=== PATIENT | female | born 1945 | race American Indian/Alaskan Native ===

== ENCOUNTER 2017-10-26 01:56 | Emergency (ER) | payer MEDICARE ==
[2017-10-26 03:57] LABS: Basophils # (Auto) 0.1 K/mm3 (0.0-0.1); Basophils % (Auto) 1.5 % (0.0-1.8); Eosinophils # (Auto) 0.4 K/mm3 (0.0-0.4); Eosinophils % (Auto) 4.6 % (0.0-4.3); Hematocrit 28.2 % (30.3-42.9); Hemoglobin 8.9 gm/dl (10.1-14.3); Lymphocytes # (Auto) 3.3 K/mm3 (1.2-5.4); Mean Corpuscular HGB Conc 32 % (30-34); Mean Corpuscular Hemoglobin 19 pg (28-32); Mean Corpuscular Volume 61 fl (79-97); Monocytes % (Auto) 11.1 % (0.0-7.3); Platelet Count 601 K/mm3 (140-440); Red Blood Count 4.66 M/mm3 (3.65-5.03); Red Cell Distribution Width 19.9 % (13.2-15.2)
[2017-10-26 04:20] LABS: BUN/Creatinine Ratio 23; Blood Urea Nitrogen 16 mg/dL (7-17); Calcium 8.9 mg/dL (8.4-10.2); Hemolysis Index 6
--- NOTE | 2017-10-26 04:31 | XRay Report ---
FINAL REPORT PROCEDURE: XR CHEST ROUTINE 2V TECHNIQUE: PA and lateral chest radiographs were obtained. CPT 12638 HISTORY: pain COMPARISON: No prior studies are available for comparison. FINDINGS: Heart: Normal. Mediastinum/Vessels: Normal. Lungs/Pleural space: Normal. Bony thorax: No acute osseous abnormality. Other: IMPRESSION: Normal examination.
--- NOTE | 2017-10-26 04:32 | XRay Report ---
FINAL REPORT PROCEDURE: XR SHOULDER 2+V LT TECHNIQUE: LEFT shoulder radiographs including AP views in internal and external rotation and abduction. CPT 07544 HISTORY: pain COMPARISON: No prior studies are available for comparison. FINDINGS: Fracture (s) and/or Dislocation(s): None . Joint space(s): Mild narrowing of the joint spaces. Slight spur formation off of the osseous structures.. Soft tissues: Normal . Bone mineralization: Normal . Foreign bodies: None . IMPRESSION: No acute fracture dislocation. Mild arthritis.
[2017-10-26] MEDS ORDERED: NORCO 10/325 PO ONE (10:38)
[2017-10-26] MEDS ORDERED: ZOFRAN ODT PO ONE (10:38)
--- NOTE | 2017-10-26 10:44 | Emergency Department Report ---
Upper Extremity - HPI Chief Complaint: Extremity Injury, Upper Stated Complaint: LT ARM PAIN Time Seen by Provider: 10/26/17 10:18 Upper Extremity: Left Shoulder Occurred When: 3 Days Severity: moderate Symptoms: Yes Pain with Movement, Yes Limited Range of Movement, No Deformity, No Numbness, No Weakness, No Swelling, No Bruising/Ecchymosis, No Laceration or Abrasion Other History: Patient complains of left shoulder pain that started approximately 2-3 days ago. Patient uses a walker and states that she favors her left arm. Patient denies fall or any trauma. Patient denies chest pain, shortness of breath, headache. ED Review of Systems ROS: Stated complaint: LT ARM PAIN Other details as noted in HPI Constitutional: denies: chills, fever Eyes: denies: eye pain, eye discharge, vision change ENT: denies: ear pain, throat pain Respiratory: denies: cough, shortness of breath, wheezing Cardiovascular: denies: chest pain, palpitations Endocrine: no symptoms reported Gastrointestinal: denies: abdominal pain, nausea, diarrhea Genitourinary: denies: urgency, dysuria, discharge Musculoskeletal: other (pain of left shoulder). denies: back pain, joint swelling, arthralgia Skin: denies: rash, lesions Neurological: denies: headache, weakness, paresthesias Psychiatric: denies: anxiety, depression Hematological/Lymphatic: denies: easy bleeding, easy bruising ED Past Medical Hx - Past Medical History Previous Medical History?: Yes Hx Hypertension: Yes Hx Arthritis: Yes Hx Asthma: Yes - Surgical History Past Surgical History?: Yes Additional Surgical History: Had back, arm and knee surgery in 2006. - Social History Smoking Status: Never Smoker Substance Use Type: None - Medications Home Medications: Home Medications Medication Instructions Recorded Confirmed Last Taken Type Acetaminophen/Codeine [Tylenol 1 tab PO Q6H PRN #20 tab 10/26/17 Unknown Rx /Codeine # 3 tab] Ibuprofen [Motrin] 800 mg PO Q8HR PRN #30 tablet 10/26/17 Unknown Rx Upper Extremity Exam - Exam General: Vital signs noted. No distress. Alert and acting appropriately. Head and Torso: No HEENT Abnormality, No Neck Tenderness, No Chest/Lungs Abnormality, No Abdominal Tenderness, No Back Tenderness Shoulder Exam: Yes Shoulder Tenderness (left), Yes AC Joint Tenderness, No Clavicle Tenderness, No Normal Range of Motion in Shoulder (LROM of pain), No Shoulder Deformity Arm Exam: No Arm/Humerus Tenderness, No Arm Deformity Elbow: No Elbow Tenderness, No Normal Range of Motion in Elbow, No Elbow Deformity Forearm: No Forearm Tenderness, No Forearm Deformity, No Pain with Pronation, No Pain with Supination Wrist: Yes Normal ROM in Wrist, No Wrist Tenderness, No Wrist Deformity, No Snuffbox Tenderness, No Pain with Axial Thumb Compression Hand: Yes Normal ROM in Digit(s), No Hand Tenderness, No Hand Deformity, No Digit Tenderness, No Digit(s) Deformity, No Tendon Dysfunction CMS Exam: No Broken Skin, No Normal Distal Pulses, No Normal Capillary Refill, No Normal Distal Sensation ED Course Vital Signs 10/26/17 10/26/17 10/26/17 03:18 09:04 09:15 Temperature 99.2 F Pulse Rate 95 H 90 Respiratory 20 17 20 Rate Blood Pressure 104/57 126/68 O2 Sat by Pulse 97 92 96 Oximetry 10/26/17 10/26/17 09:30 09:43 Temperature Pulse Rate 85 Respiratory 12 16 Rate Blood Pressure 124/67 O2 Sat by Pulse 100 100 Oximetry ED Medical Decision Making - Lab Data Result diagrams: 10/26/17 03:36 10/26/17 03:36 - Medical Decision Making Discussed plan of care with patient imaging results. Patient was given pain medicine for her shoulder pain. Discussed the patient and she will go home with 2 prescriptions and follow with her primary care physician. Patient denies any chest pain shortness of breath or headache. Critical care attestation.: If time is entered above; I have spent that time in minutes in the direct care of this critically ill patient, excluding procedure time. ED Disposition Clinical Impression: Left shoulder strain Disposition: DC-01 TO HOME OR SELFCARE Is pt being admited?: No Does the pt Need Aspirin: No Condition: Stable Instructions: Shoulder Sprain (ED) Additional Instructions: Patient instructed to return to the emergency department if symptoms become worse. Prescriptions: Acetaminophen/Codeine [Tylenol /Codeine # 3 tab] 1 tab PO Q6H PRN #20 tab PRN Reason: Pain Ibuprofen [Motrin] 800 mg PO Q8HR PRN #30 tablet PRN Reason: Pain Referrals: SAUD DINH MD [Primary Care Provider] - 3-5 Days Forms: Accompanied Note Time of Disposition: 10:46 Print Language: KENYAN
[2017-10-26 11:40] VITALS: BP 134/75
== END 2017-10-26 11:41 | disposition home or self-care (01) ==
LOC: ED 01:56
DX: S46.812A Strain of other muscles, fascia and tendons at shoulder and upper arm level, left arm, initial encounter (principal); I10 Essential (primary) hypertension; M19.90 Unspecified osteoarthritis, unspecified site; J45.909 Unspecified asthma, uncomplicated; X50.3XXA Overexertion from repetitive movements, initial encounter; Y93.89 Activity, other specified; Y92.89 Other specified places as the place of occurrence of the external cause; Y99.8 Other external cause status
CPT/HCPCS: 36415; 71046; 80048; 85025; Q0162

== ENCOUNTER 2017-11-14 02:48 | Emergency (ER) | payer MEDICARE ==
[2017-11-14 05:16] LABS: Basophils % (Auto) 0.4 % (0.0-1.8); Eosinophils % (Auto) 0.2 % (0.0-4.3); Lymphocytes % (Auto) 17.2 % (13.4-35.0); Mean Corpuscular HGB Conc 30 % (30-34); Monocytes # (Auto) 1.3 K/mm3 (0.0-0.8); Monocytes % (Auto) 11.4 % (0.0-7.3); Platelet Count 602 K/mm3 (140-440); Red Blood Count 4.56 M/mm3 (3.65-5.03); Red Cell Distribution Width 18.7 % (13.2-15.2)
[2017-11-14 05:17] LABS: Hematocrit 27.7 % (30.3-42.9); Hemoglobin 8.2 gm/dl (10.1-14.3); Mean Corpuscular Hemoglobin 18 pg (28-32); Mean Corpuscular Volume 61 fl (79-97)
[2017-11-14 05:25] LABS: INR 1.24 (0.87-1.13)
[2017-11-14 05:26] LABS: Partial Thromboplastin Time 29.6 Sec. (24.2-36.6)
[2017-11-14 05:32] LABS: Alanine Aminotransferase 6 units/L (7-56); Albumin 3.3 g/dL (3.9-5); BUN/Creatinine Ratio 45; Blood Urea Nitrogen 18 mg/dL (7-17); Calcium 8.8 mg/dL (8.4-10.2); Hemolysis Index 2
[2017-11-14 05:44] LABS: Amphetamine Screen,Urine PRESUMPTIVE NEGATIVE; Benzodiazepines Screen,Urine PRESUMPTIVE NEGATIVE; Cannabinoid Screen,Urine PRESUMPTIVE NEGATIVE; Cocaine Screen,Urine PRESUMPTIVE NEGATIVE; Methadone Screen,Urine PRESUMPTIVE NEGATIVE
[2017-11-14 05:45] LABS: Bacteria,Urine 1+ /HPF (Negative); Bilirubin,Urine NEG (Negative); Blood,Urine MOD (Negative); Color,Urine Yellow (Yellow); Protein,Urine <15 mg/dL mg/dL (Negative); Urobilinogen,Urine < 2.0 mg/dL (<2.0)
[2017-11-14 05:57] LABS: Opiate Screen,Urine PRESUMPTIVE POSITIVE
--- NOTE | 2017-11-14 06:54 | Emergency Department Report ---
HPI - General Chief Complaint: Altered Mental Status Time Seen by Provider: 11/14/17 06:19 - HPI HPI: The patient is a 72-year-old female who presents for evaluation of mental health. The patient reports visual hallucinations consisting of seeing multiple people in her home last night. She states that she experienced constant and severe worrying/anxiety that began last night secondary to her visions of seeing people in her apartment. She says that this prompted her to call local law enforcement multiple times last night. She shares that law enforcement golf club head inspector and adjuster her apartment and submits to her that there were no other people in the apartment, which prompted her presentation to the ED. The patient denies fever, headache, unexplained weight loss or weight gain, heat or cold intolerance, skin, hair, or nail changes, neuro deficits, homicidal ideations, or auditory hallucinations. ED Past Medical Hx - Past Medical History Hx Hypertension: Yes Hx Arthritis: Yes Hx Asthma: Yes - Surgical History Additional Surgical History: Had back, arm and knee surgery in 2006. - Social History Smoking Status: Former Smoker Substance Use Type: Alcohol - Medications Home Medications: Home Medications Medication Instructions Recorded Confirmed Last Taken Type Acetaminophen/Codeine [Tylenol 1 tab PO Q6H PRN #20 tab 10/26/17 Unknown Rx /Codeine # 3 tab] Ibuprofen [Motrin] 800 mg PO Q8HR PRN #30 tablet 10/26/17 Unknown Rx ED Review of Systems ROS: Stated complaint: AMS Other details as noted in HPI Constitutional: denies: fever ENT: denies: throat or neck pain Respiratory: denies: cough, shortness of breath Cardiovascular: denies: chest pain Endocrine: denies unexplained weight loss or gain Gastrointestinal: denies: abdominal pain, nausea Genitourinary: denies: dysuria Musculoskeletal: denies: leg swelling Skin: denies: rash Neurological: denies: headache Hematological/Lymphatic: denies: easy bleeding or easy bruising Psych: reports anxiety and visual hallucinations denies sadness or hopelessness Physical Exam - Physical Exam Vital Signs: Vital Signs 11/14/17 04:26 Temperature 98 F Pulse Rate 98 H Blood Pressure 132/88 O2 Sat by Pulse 100 Oximetry Physical Exam: General: well-nourished, well-developed, no acute distress Head: Normocephalic, atraumatic Eyes: normal sclera ENT: Mucous membranes are pale and dry Neck: No neck stiffness, no cervical adenopathy Respiratory: Breath sounds equal bilaterally, no wheezing, rales, or rhonchi Cardio: S1 and S2 present, no murmurs, rubs, gallops, capillary refill is delayed Abdomen: Normoactive bowel sounds, soft abdomen, no rigidity, no guarding or rebound tenderness Musc: No pitting edema Skin: No rash Neuro: no facial drooping, normal speech, alert oriented 2, no obvious gross sensation motor deficits on neuro exam Psych: Flat affect, poor insight, patient delusional, depressed mood ED Course Vital Signs 11/14/17 04:26 Temperature 98 F Pulse Rate 98 H Blood Pressure 132/88 O2 Sat by Pulse 100 Oximetry ED Medical Decision Making - Lab Data Result diagrams: 11/14/17 04:57 11/14/17 04:57 - Medical Decision Making The patient was seen and examined by myself. The patient is placed on a cardiac rehab nurse and continuous pulse ox. On initial evaluation, the patient was found to be in no distress. Labs are obtained. Lab results exhibit positive opiate screen on UDS, and moderate anemia, hemoglobin 8, otherwise labs are grossly unremarkable. The patient is medically clear. The patient was reevaluated and she remains delusional reporting visual hallucinations. She is now stating that there was an unknown woman with a poodle was in her home. She states that when local law enforcement presented to her home and searched her home for an intruder the woman left. She submits that when the police exited, the woman returned to her apartment with the poodle despite her apartment door being locked. Mental health is consulted. Mental health evaluates the patient and agrees that the patient is exhibiting signs consistent with acute psychosis. A 1013 is placed. The patient will be admitted to a psychiatric facility once bed placement is obtained. Critical care attestation.: If time is entered above; I have spent that time in minutes in the direct care of this critically ill patient, excluding procedure time. ED Disposition Clinical Impression: Acute psychosis, Visual hallucinations, Dehydration Disposition: DC/TX-65 PSY HOSP/PSY UNIT Is pt being admited?: No Does the pt Need Aspirin: No Condition: Fair Referrals: SAUD DINH MD [Primary Care Provider] - 3-5 Days Time of Disposition: 06:54
--- NOTE | 2017-11-14 08:06 | Cat Scan Report ---
CT HEAD WITHOUT CONTRAST: HISTORY: Headache. TECHNIQUE: Sequential 2.5mm CT images. COMPARISON: none. FINDINGS: Cerebral Parenchyma: Within normal limits. Cerebellum: Within normal limits. Brainstem: Within normal limits. Ventricles: Normal. Sella: Normal. Extra-axial spaces: Normal. Basal Cisterns: Normal. Intracranial Hemorrhage: None. Midline Shift: None. Calvarium: Normal. Sinuses: Normal. Mastoid Air Cells: Normal. Visualized Orbits: Normal. IMPRESSION: Cranial CT scan within normal limits.
[2017-11-14] MEDS ORDERED: K-DUR PO ONE (09:02)
[2017-11-14] MEDS ORDERED: MILK OF MAGNESIA PO PRN (09:02)
[2017-11-14] MEDS ORDERED: ALUM-MAG HYDROX-SIMETH 200-200-20MG/5ML PO PRN (09:02)
[2017-11-14] MEDS ORDERED: MOTRIN PO ONE (17:44)
[2017-11-15] MEDS: TYLENOL PO PRN ×2 (05:52→18:33)
--- NOTE | 2017-11-15 14:54 | Consultation ---
History of Present Illness - Reason for Consult Consult date: 11/15/17 Reason for consult: Mental Health Evaluation Requesting physician: DEVON SUMNER - Chief Complaint Chief complaint: "There were people in my house" - History of Present Psychiatric Illness The patient is a 72-year-old female who presents for evaluation of mental health. Today the patient is calm and cooperative, but delusional during the assessment. She stated that she called the police prior to her admission to the hospital because their was strangers in her home along with a dog. She stated that the dog was sitting near her. Per the record, the police confirmed that there wasn't anyone in the patient's home and she was brought to the hospital for evaluation. She is adamant that "people and a dog" was in her home. Per collateral information from her daughter Mirella Cousins at [phone], she stated that her mother has experienced falls recently. She stated that the patient does not have a mental hx dx, but her recent actions isn't her mother ( baseline). She stated that her mother is taking Tylenol 3 for pain, but isn't aware of her mothers's entire medication list. The patient denies SI/HI's and AVH's. She would not confirm or deny erratic sleep and a poor appetite. The patient denies recreational drug use and alcohol consumption (etoh). Medications and Allergies Allergies Allergy/AdvReac Type Severity Reaction Status Date / Time No Known Allergies Allergy Unverified 10/26/17 03:29 Home Medications Medication Instructions Recorded Confirmed Last Taken Type Acetaminophen/Codeine [Tylenol 1 tab PO Q6H PRN #20 tab 10/26/17 11/15/17 Unknown Rx /Codeine # 3 tab] Ibuprofen [Motrin] 800 mg PO Q8HR PRN #30 tablet 10/26/17 11/15/17 Unknown Rx Active Meds: Active Medications Acetaminophen (Tylenol) 650 mg PO Q4HR PRN PRN Reason: Pain MILD(1-3)/Fever >100.5/QUINONEZ Last Admin: 11/15/17 05:52 Dose: 650 mg Acetaminophen/Codeine Phosphate (Tylenol #3) 1 tab PO Q8HR PRN PRN Reason: Pain Al Hydrox/Mg Hydrox/Simethicone (Alum-Mag Hydrox-Simeth [id number]/5ml) 30 ml PO Q4HR PRN PRN Reason: Indigestion Magnesium Hydroxide (Milk Of Magnesia) 30 ml PO Q12HR PRN PRN Reason: Constipation Past psychiatric history - Past Medical History Past Medical History: hypertension, other (Asthma) Past Surgical History: No surgical history - past Psychiatric treatment and history psychiatric treatment history: Denies a psy hx and fam psy hx. - Social History Social history: Lives alone Mental Status Exam - Vital signs Last Vital Signs Temp 99 F 11/15/17 10:00 Pulse 100 H 11/15/17 10:00 Resp 18 11/15/17 11:00 BP 106/52 11/15/17 10:00 Pulse Ox 99 11/15/17 10:00 - Exam Narrative exam: MSE: Appearance: calm, cooperative Behavior: regular eye contact Speech: regular rate and tone Mood: "okay" Affect: congruent to mood Thought Process: tangential Thought Content: denies SI/HI's and AVH's, delusional Motor Activity: lying in bed Cognition: A/O x3 Insight: poor Judgment: poor Results Result Diagrams: 11/14/17 04:57 11/14/17 04:57 All other labs normal. Assessment and Plan Assessment and plan: Impression: Unspecified Psychosis. Today the patient is calm and cooperative, but delusional during the assessment. The patient has been experiencing falls per her daughter Mirella Cousins. No agitation observed during the assessment. DDx: R/O Delusional DO, R/O Delirium, R/O Polypharmacy Recommendation/Plan: Continue 1013. Informed the patient's daughter to bring the entire medication list of the patient to the ER. Continue Tylenol 3 prn, don 't want to risk opioid withdrawals. Will reassess the patient in 24 hours to determine proper treatment and dispo.
[2017-11-16] MEDS: TYLENOL #3 PO PRN ×2 (03:11→09:53)
[2017-11-16] MEDS ORDERED: MOTRIN ONE (13:46)
[2017-11-16] MEDS ORDERED: MOTRIN PO ONE (13:51)
--- NOTE | 2017-11-16 17:27 | Progress Note ---
Subjective - Reason for Consult Consult date: 11/16/17 Reason for consult: follow up - Chief Complaint Chief complaint: "I want to go home." The patient is a 72-year-old female who presents for evaluation of mental health. Today the patient is calm and cooperative and able to recount the events leading to her ER visit. She stated that she called the police prior to her admission to the hospital because their was strangers in her home along with a dog. She states this was the first time in her life she experienced hallucinations. She states it seemed so real. Per the record, the police confirmed that there wasn't anyone in the patient's home and she was brought to the hospital for evaluation. She is adamant that "people and a dog" was in her home. Per collateral information from her daughter Mirella Cousins at [phone], she stated that her mother has experienced falls recently. She stated that the patient does not have a mental hx dx, but her recent actions isn't her mother (baseline). She stated that her mother is taking Tylenol 3 for pain, but isn't aware of her mothers's entire medication list. Medicines have not been reconciled. The patient denies SI/HI's and AVH's. She states she normally sleeps well, 8 hours per night. She also reports her appetite is fair. She wants to go home. She states she is more pain in the hospital due to severe arthritis. The patient denies recreational drug use and alcohol consumption (etoh). She is alert and oriented to person, place, and time. Mental Status Exam - Vital signs Last Vital Signs Temp 98.7 F 11/16/17 11:30 Pulse 81 11/16/17 11:30 Resp 18 11/16/17 11:30 BP 133/59 11/16/17 11:30 Pulse Ox 98 11/16/17 11:30 - Exam Narrative exam: MSE: Appearance: calm, cooperative Behavior: regular eye contact Speech: regular rate and tone Mood: "okay" Affect: congruent to mood Thought Process: logical Thought Content: denies SI/HI's and AVH Motor Activity: lying in bed Cognition: A/O x3 Insight: fair Judgment: fair Assessment and Plan Impression: Unspecified Psychosis. Today the patient is calm and cooperative and is able to recount the events leading to her ER visit. The patient has been experiencing falls per her daughter Mirella Cousins. No agitation observed during the assessment. Consider the visual hallucinations and subsequent paranoia as part of a cognitive or organic disorder. Symptoms appear to have resolved but ongoing monitoring over the next 24-48 hours is recommended. DDx: R/O Delusional DO, R/O Delirium, R/O Polypharmacy Recommendation/Plan: Continue 1013. Her medications need to be reconciled immediately by the nursing staff. Continue Tylenol 3 prn to reduce the risk for potential opioid withdrawal.
[2017-11-17] MEDS: TYLENOL #3 PO PRN (07:54)
--- NOTE | 2017-11-18 10:40 | Progress Note ---
Subjective - Reason for Consult Consult date: 11/18/17 Reason for consult: Psychiatry Follow-up - Chief Complaint Chief complaint: "I feel okay" The patient is a 72-year-old female who presents for evaluation of mental health. Today the patient is calm and cooperative and able to recount the events leading to her ER visit. She stated that she does not believe people was in her house now when asked. She stated that she don't know why she felt like that prior to her admission to the hospital. Per the staff, no behavioral disturbances since her admission. She denies SI/HI's and AVH's. Mental Status Exam - Vital signs Last Vital Signs Temp 98.7 F 11/18/17 07:50 Pulse 95 H 11/18/17 07:50 Resp 16 11/18/17 07:50 BP 142/67 11/18/17 07:50 Pulse Ox 99 11/18/17 07:50 - Exam Narrative exam: MSE: Appearance: calm, cooperative Behavior: regular eye contact Speech: regular rate and tone Mood: "okay" Affect: congruent to mood Thought Process: logical Thought Content: denies SI/HI's and AVH's Motor Activity: lying in bed Cognition: A/O x3 Insight: fair Judgment: fair Assessment and Plan Impression: Unspecified Psychosis. Today the patient is calm and cooperative and is able to recount the events leading to her ER visit. The patient has been experiencing falls per her daughter Mirella Cousins. No agitation observed during the assessment. Consider the visual hallucinations and subsequent paranoia as part of a cognitive or organic disorder. DDx: R/O Delusional DO, R/O Delirium, R/O Polypharmacy Recommendation/Plan: Rescind 1013. Discussed with the patient's daughter Mirella Cousins to have her mom follow up with her PCP to reconcile her medication list. Continue Tylenol 3 prn to reduce the risk for potential opioid withdrawal.
[2017-11-18] MEDS: TYLENOL #3 PO PRN (12:54)
[2017-11-18 19:51] VITALS: BP 139/88
== END 2017-11-18 19:53 | disposition home or self-care (01) ==
LOC: ED 02:48
DX: F23 Brief psychotic disorder (principal); E86.0 Dehydration; I10 Essential (primary) hypertension; M19.90 Unspecified osteoarthritis, unspecified site; J45.909 Unspecified asthma, uncomplicated; Z87.891 Personal history of nicotine dependence; Z79.899 Other long term (current) drug therapy
CPT/HCPCS: 36415; 70450; 80053; 80307; 81001; 84484; 85025; 85610; 85730; 99285; G0480; 80320

== ENCOUNTER 2018-02-21 13:48 | Observation (INO) | payer MEDICARE ==
[2018-02-21] MEDS ORDERED: ASPIRIN PO ONE (15:23)
[2018-02-21 16:19] LABS: Basophils % (Auto) 0.6 % (0.0-1.8); Eosinophils # (Auto) 0.2 K/mm3 (0.0-0.4); Eosinophils % (Auto) 2.4 % (0.0-4.3); Lymphocytes # (Auto) 2.7 K/mm3 (1.2-5.4); Lymphocytes % (Auto) 39.2 % (13.4-35.0); Mean Corpuscular HGB Conc 30 % (30-34); Monocytes # (Auto) 0.7 K/mm3 (0.0-0.8); Monocytes % (Auto) 10.8 % (0.0-7.3); Platelet Count 669 K/mm3 (140-440); Red Blood Count 5.17 M/mm3 (3.65-5.03); Red Cell Distribution Width 19.1 % (13.2-15.2)
[2018-02-21 16:22] LABS: Hematocrit 31.9 % (30.3-42.9); Hemoglobin 9.6 gm/dl (10.1-14.3); Mean Corpuscular Hemoglobin 19 pg (28-32); Mean Corpuscular Volume 62 fl (79-97)
[2018-02-21 16:28] LABS: BUN/Creatinine Ratio 20; Blood Urea Nitrogen 12 mg/dL (7-17); Calcium 9.1 mg/dL (8.4-10.2); Hemolysis Index 22
[2018-02-21] MEDS ORDERED: NACL 0.9% 500 ML 500 ML IV ONE (16:54)
--- NOTE | 2018-02-21 17:32 | Emergency Department Report ---
Chief Complaint: Chest Pain Stated Complaint: RIGHT SIDE CHEST PAIN Time Seen by Provider: 02/21/18 16:48 - HPI History of Present Illness: Ms. Ponce has right sided chest pain worse with movement. Tachycardia with hypotension. IVF initiated. CT PE protocol ordered - Exam Vital Signs: Vital Signs 02/21/18 15:14 Temperature 98.5 F Pulse Rate 111 H Respiratory 20 Rate Blood Pressure 91/54 O2 Sat by Pulse 97 Oximetry MSE screening note: Focused history and physical exam performed. Due to findings the following was ordered: ED Medical Decision Making - Lab Data Result diagrams: 02/21/18 15:52 02/21/18 15:52 ED Disposition for MSE Condition: Stable Referrals: PRIMARY CARE, [Primary Care Provider] - 3-5 Days
--- NOTE | 2018-02-21 17:57 | Emergency Department Report ---
ED Chest Pain HPI - General Chief Complaint: Chest Pain Stated Complaint: RIGHT SIDE CHEST PAIN Time Seen by Provider: 02/21/18 16:35 Source: patient Mode of arrival: Stretcher Limitations: Physical Limitation - History of Present Illness Initial Comments: Patient is a 72-year-old female that presents to emergency room with complaints of right-sided chest pain 1 day patient states the pain is worse with movement and better with rest. Patient states the pain is nonradiating. Patient denies diaphoresis and nausea and vomiting. Patient denies abdominal pain. Patient states the chest pain as a 10 out of 10. She describes the pain as a sharp pain. Patient denies shortness of breath MD Complaint: chest pain -: Sudden Pain Location: right chest Pain Radiation: none Severity: severe Severity scale (0 -10): 10 Quality: sharp Consistency: constant Improves With: rest Worsens With: exertion, inspiration, movement re: denies: nausea, vomting, diaphoresis, dyspnea, sense of impending doom Other Symptoms: denies: cough, fever, syncope, rash, acid taste in mouth, leg swelling, palpitations, burping Treatments Prior to Arrival: none Aspirin use within the Past 7 Days: (1) Yes - Related Data On Oral Contraceptives: No Previous Rx's Medication Instructions Recorded Last Taken Type Acetaminophen/Codeine [Tylenol 1 tab PO Q6H PRN #20 tab 10/26/17 Unknown Rx /Codeine # 3 tab] Ibuprofen [Motrin 800 MG tab] 800 mg PO Q8HR PRN #20 tablet 11/18/17 Unknown Rx Allergies Allergy/AdvReac Type Severity Reaction Status Date / Time No Known Allergies Allergy Unverified 10/26/17 03:29 Heart Score - HEART Score History: Slightly suspicious EKG: Normal Age: > 65 Risk factors: 1-2 risk factors Troponin: < normal limit HEART Score: 3 ED Review of Systems ROS: Stated complaint: RIGHT SIDE CHEST PAIN Other details as noted in HPI Constitutional: denies: chills, fever Eyes: denies: eye pain, eye discharge, vision change ENT: denies: ear pain, throat pain Respiratory: denies: cough, shortness of breath, wheezing Cardiovascular: chest pain. denies: palpitations Endocrine: no symptoms reported Gastrointestinal: denies: abdominal pain, nausea, diarrhea Genitourinary: denies: urgency, dysuria, discharge Musculoskeletal: denies: back pain, joint swelling, arthralgia Skin: denies: rash, lesions Neurological: denies: headache, weakness, paresthesias Psychiatric: denies: anxiety, depression Hematological/Lymphatic: denies: easy bleeding, easy bruising ED Past Medical Hx - Past Medical History Previous Medical History?: Yes Hx Hypertension: Yes Hx Arthritis: Yes Hx Asthma: Yes - Surgical History Past Surgical History?: Yes Additional Surgical History: Had back, arm and knee surgery in 2006. - Family History Family history: hypertension - Social History Smoking Status: Never Smoker Substance Use Type: None - Medications Home Medications: Home Medications Medication Instructions Recorded Confirmed Last Taken Type Acetaminophen/Codeine [Tylenol 1 tab PO Q6H PRN #20 tab 10/26/17 11/15/17 Unknown Rx /Codeine # 3 tab] Ibuprofen [Motrin 800 MG tab] 800 mg PO Q8HR PRN #20 tablet 11/18/17 Unknown Rx ED Physical Exam - General Limitations: Physical Limitation General appearance: alert, in no apparent distress - Head Head exam: Present: atraumatic, normocephalic - Eye Eye exam: Present: normal appearance - ENT ENT exam: Present: mucous membranes moist - Neck Neck exam: Present: normal inspection - Respiratory Respiratory exam: Present: normal lung sounds bilaterally. Absent: respiratory distress - Cardiovascular Cardiovascular Exam: Present: regular rate, normal rhythm. Absent: systolic murmur, diastolic murmur, rubs, gallop - GI/Abdominal GI/Abdominal exam: Present: soft, normal bowel sounds - Extremities Exam Extremities exam: Present: normal inspection - Back Exam Back exam: Present: normal inspection - Neurological Exam Neurological exam: Present: alert, oriented X3 - Psychiatric Psychiatric exam: Present: normal affect, normal mood - Skin Skin exam: Present: warm, dry, intact, normal color. Absent: rash ED Course Vital Signs 02/21/18 02/21/18 02/21/18 15:14 16:00 19:47 Temperature 98.5 F 98.1 F Pulse Rate 111 H 74 89 Respiratory 20 18 16 Rate Blood Pressure 91/54 Blood Pressure 123/60 131/72 [Left] O2 Sat by Pulse 97 100 98 Oximetry - Reevaluation(s) Reevaluation #1: Patient did not tolerate IV dye for CTA through her peripheral IV through her right antecubital peripheral IV. Patient complaining of a lot of pain with the dye going in. Patient had multiple sticks on her arms. We'll place a right EJ for her CTA. Patient is agreeable to the procedure. Procedure done see procedure note 02/21/18 19:00 Reevaluation #2: Hospitalist consulted for admission. Hospitalist to assume care of patient. dr nieves took report. Discussed plan of care with patient. Patient agreed to admission. Hospitalist to admit patient for further evaluation and treatment 02/21/18 19:53 - EJ/Peripheral Line Neck R Time Out Performed: Yes Indications: nurses unable to establis, multiple IV sites needed Skin Cleansed in Sterile Fashion: Yes Size: 20 Dressing Placed: Tegaderm, tape Patient Tolerated Procedure: well LINDSEY score - Lindsey Score Age > 65: (1) Yes Aspirin use within the Past 7 Days: (1) Yes 3 or more CAD Risk Factors: (0) No 2 or more Angina events in past 24 hrs: (0) No Known CAD with more than 50% Stenosis: (0) No Elevated Cardiac Markers: (0) No ST Deviation Greater than 0.5mm: (0) No LINDSEY Score: 2 ED Medical Decision Making - Lab Data Result diagrams: 02/21/18 15:52 02/21/18 15:52 - EKG Data -: EKG Interpreted by Me EKG shows normal: sinus rhythm, axis, intervals, QRS complexes, ST-T waves Rate: tachycardia - Medical Decision Making Patient is a 72-year-old female that presents to emergency room with hypotension and chest pain. Blood pressure has improved with treatment. Will admit patient to the hospitalist service for further evaluation and treatment. - Differential Diagnosis cp. acs. Hypotension Critical Care Time: Yes Critical care attestation.: If time is entered above; I have spent that time in minutes in the direct care of this critically ill patient, excluding procedure time. Critical Care Time: 35 minutes for critical care time. ED Disposition Clinical Impression: Hypotension, Chest pain, Shortness of breath Disposition: OP ADMIT IP TO THIS HOSP Is pt being admited?: Yes Does the pt Need Aspirin: No Condition: Critical Time of Disposition: 19:55
--- NOTE | 2018-02-21 20:00 | Cat Scan Report ---
FINAL REPORT PROCEDURE: CT angiogram chest with contrast. TECHNIQUE: Computerized tomographic angiography of the chest was performed after the IV injection of iodinated nonionic contrast including image processing. The image data was postprocessed using 2-dimensional multiplanar reformatted (MPR) and 3-dimensional (MIP and/or volume rendered) techniques. HISTORY: Right-sided chest pain, tachycardia. COMPARISON: No prior studies are available for comparison. FINDINGS: The trachea and central bronchi appear normal. There are some small cysts in both upper lobes. This may represent early emphysema. There is some minimal streaky opacity in the right lower lobe. This probably represents some fibrosis. There is some mild fibrosis in the posterior portion of the left upper lobe and probably in the left lower lobe. There are no definite signs of pneumonia. There are no definite pulmonary nodules. There are no pleural effusions. The thoracic aorta has a normal caliber without evidence of dissection. There is a small nodule in the left lobe of the thyroid. The pulmonary arteries enhance normally. There are no definite filling defects to indicate pulmonary embolism. There are a few small nonspecific mediastinal lymph nodes. The heart size is mildly enlarged. The adrenal glands appear normal. The regional skeleton appears intact. 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 IMPRESSION: No evidence of pulmonary embolism. Question early emphysema with scattered areas of fibrosis. Mild cardiomegaly.
[2018-02-22] MEDS ORDERED: NACL 0.9% 1000 ML 1,000 ML IV SCH
[2018-02-22] MEDS ORDERED: ZOFRAN IV PRN
[2018-02-22] MEDS ORDERED: TYLENOL PO PRN
[2018-02-22] MEDS ORDERED: SODIUM CHLORIDE FLUSH SYRINGE 10 ML IV PRN
[2018-02-22] MEDS ORDERED: PERCOCET 5/325 PO PRN
[2018-02-22] MEDS ORDERED: MORPHINE IV PRN
[2018-02-22] MEDS ORDERED: AMBIEN PO PRN
--- NOTE | 2018-02-22 | History and Physical Report ---
History of Present Illness Date of examination: 02/21/18 Date of admission: 02/21/2018 Chief complaint: Chief complaint: Chest pain of one-day duration History of present illness: History of Present Illness: Patient is a 72-year-old female that presents to emergency room with complaints of right-sided chest pain 1 day patient states the pain is worse with movement and better with rest. Patient states the pain is nonradiating. Patient denies diaphoresis and nausea and vomiting. Patient denies abdominal pain. Patient states the chest pain as a 10 out of 10. She describes the pain as a sharp pain. Patient denies shortness of breath MD Complaint: chest pain -: Sudden Pain Location: right chest Pain Radiation: none Severity: severe Severity scale (0 -10): 10 Quality: sharp Consistency: constant Improves With: rest Worsens With: exertion, inspiration, movement , denies: nausea, vomting, diaphoresis, dyspnea, sense of impending doom Other Symptoms: denies: cough, fever, syncope, rash, acid taste in mouth, leg swelling, palpitations, burping Treatments Prior to Arrival: none Aspirin use within the Past 7 Days: (1) Yes Past Medical History Previous Medical History?: Yes Hx Hypertension: Yes Hx Arthritis: Yes Hx Asthma: Yes Surgical History Past Surgical History?: Yes Additional Surgical History: Had back, arm and knee surgery in 2006. Family History Family history: hypertension Social History Smoking Status: Never Smoker Substance Use Type: None Medications Home Medications: Home Medications Medication Instructions Recorded Confirmed Last Taken Type Acetaminophen/Codeine [Tylenol 1 tab PO Q6H PRN #20 tab 10/26/17 11/15/17 Unknown Rx /Codeine # 3 tab] Ibuprofen [Motrin 800 MG tab] 800 mg PO Q8HR PRN #20 tablet 11/18/17 Unknown Rx Review of Systems ROS: Stated complaint: RIGHT SIDE CHEST PAIN Other details as noted in HPI Constitutional: denies: chills, fever Eyes: denies: eye pain, eye discharge, vision change ENT: denies: ear pain, throat pain Respiratory: denies: cough, shortness of breath, wheezing Cardiovascular: chest pain. denies: palpitations Endocrine: no symptoms reported Gastrointestinal: denies: abdominal pain, nausea, diarrhea Genitourinary: denies: urgency, dysuria, discharge Musculoskeletal: denies: back pain, joint swelling, arthralgia Skin: denies: rash, lesions Neurological: denies: headache, weakness, paresthesias Psychiatric: denies: anxiety, depression Hematological/Lymphatic: denies: easy bleeding, easy bruising Medications and Allergies Allergies Allergy/AdvReac Type Severity Reaction Status Date / Time No Known Allergies Allergy Unverified 10/26/17 03:29 Home Medications Medication Instructions Recorded Confirmed Last Taken Type Acetaminophen/Codeine [Tylenol 1 tab PO Q6H PRN #20 tab 10/26/17 11/15/17 Unknown Rx /Codeine # 3 tab] Ibuprofen [Motrin 800 MG tab] 800 mg PO Q8HR PRN #20 tablet 11/18/17 Unknown Rx Exam - Constitutional Vitals: Temp Pulse Resp BP Pulse Ox 98.1 F 91 H 13 116/58 97 02/21/18 19:47 02/21/18 23:30 02/21/18 23:30 02/21/18 23:30 02/21/18 23:30 General appearance: Present: no acute distress, well-nourished - EENT Eyes: Present: PERRL ENT: hearing intact, clear oral mucosa - Neck Neck: Present: supple, normal ROM - Respiratory Respiratory effort: normal Respiratory: bilateral: CTA - Cardiovascular Heart rate: 70 Rhythm: regular Heart Sounds: Present: S1 & S2. Absent: rub, click - Extremities Extremities: no ischemia, pulses intact, pulses symmetrical, No edema Peripheral Pulses: within normal limits - Abdominal General gastrointestinal: Present: soft, non-tender, non-distended, normal bowel sounds Female genitourinary: Present: normal - Integumentary Integumentary: Present: clear, warm, dry - Musculoskeletal Musculoskeletal: gait normal, strength equal bilaterally - Psychiatric Psychiatric: appropriate mood/affect, intact judgment & insight - Neurologic Neurologic: CNII-XII intact, moves all extremities - Allied Health Allied health notes reviewed: nursing, case management Results - Labs CBC & Chem 7: 02/22/18 03:03 02/22/18 03:03 Labs: Laboratory Last Values WBC 6.9 K/mm3 (4.5-11.0) 02/21/18 15:52 RBC 5.17 M/mm3 (3.65-5.03) H 02/21/18 15:52 Hgb 9.6 gm/dl (10.1-14.3) L 02/21/18 15:52 Hct 31.9 % (30.3-42.9) 02/21/18 15:52 MCV 62 fl (79-97) L 02/21/18 15:52 MCH 19 pg (28-32) L 02/21/18 15:52 MCHC 30 % (30-34) 02/21/18 15:52 RDW 19.1 % (13.2-15.2) H 02/21/18 15:52 Plt Count 669 K/mm3 (140-440) H 02/21/18 15:52 Lymph % (Auto) 39.2 % (13.4-35.0) H 02/21/18 15:52 [place] % (Auto) 10.8 % (0.0-7.3) H 02/21/18 15:52 Eos % (Auto) 2.4 % (0.0-4.3) 02/21/18 15:52 Baso % (Auto) 0.6 % (0.0-1.8) 02/21/18 15:52 Lymph # 2.7 K/mm3 (1.2-5.4) 02/21/18 15:52 [place] # 0.7 K/mm3 (0.0-0.8) 02/21/18 15:52 Eos # 0.2 K/mm3 (0.0-0.4) 02/21/18 15:52 Baso # 0.0 K/mm3 (0.0-0.1) 02/21/18 15:52 Seg Neutrophils % 47.0 % (40.0-70.0) 02/21/18 15:52 Seg Neutrophils # 3.2 K/mm3 (1.8-7.7) 02/21/18 15:52 D-Dimer 4219.64 ng/mlDDU (0-234) H 02/21/18 17:36 Sodium 138 mmol/L (137-145) 02/21/18 15:52 Potassium 4.0 mmol/L (3.6-5.0) 02/21/18 15:52 Chloride 100.2 mmol/L (98-107) 02/21/18 15:52 Carbon Dioxide 23 mmol/L (22-30) 02/21/18 15:52 Anion Gap 19 mmol/L 02/21/18 15:52 BUN 12 mg/dL (7-17) 02/21/18 15:52 Creatinine 0.6 mg/dL (0.7-1.2) L 02/21/18 15:52 Estimated GFR > 60 ml/min 02/21/18 15:52 BUN/Creatinine Ratio 20 % 02/21/18 15:52 Glucose 90 mg/dL (65-100) 02/21/18 15:52 Lactic Acid 0.60 mmol/L (0.7-2.0) L 02/21/18 17:36 Calcium 9.1 mg/dL (8.4-10.2) 02/21/18 15:52 Troponin T < 0.010 ng/mL (0.00-0.029) 02/21/18 21:00 Short CBC 02/21/18 02/22/18 Range/Units 15:52 03:03 WBC 6.9 6.6 (4.5-11.0) K/mm3 Hgb 9.6 L 8.5 L (10.1-14.3) gm/dl Hct 31.9 27.4 L (30.3-42.9) % Plt Count 669 H 622 H (140-440) K/mm3 BMP 02/21/18 02/22/18 15:52 03:03 Sodium 138 138 Potassium 4.0 4.1 Chloride 100.2 100.9 Carbon Dioxide 23 25 BUN 12 10 Creatinine 0.6 L 0.5 L Glucose 90 142 H Calcium 9.1 8.6 Cardiac Enzymes 02/21/18 02/21/18 02/21/18 Range/Units 15:52 17:36 21:00 Troponin T < 0.010 < 0.010 < 0.010 (0.00-0.029) ng/mL Liver Function 02/22/18 Range/Units 03:03 Total Bilirubin < 0.20 (0.1-1.2) mg/dL AST 15 (5-40) units/L ALT 7 (7-56) units/L Alkaline Phosphatase 86 (35-129) units/L Albumin 2.8 L (3.9-5) g/dL - Imaging and Cardiology EKG: report reviewed (no acute ST-T wave changes heart rate of 102 left atrial enlargement or anteroseptal infarct) Imaging and Cardiology: CT angiogram FINDINGS: The trachea and central bronchi appear normal. There are some small cysts in both upper lobes. This may represent early emphysema. There is some minimal streaky opacity in the right lower lobe. This probably represents some fibrosis. There is some mild fibrosis in the posterior portion of the left upper lobe and probably in the left lower lobe. There are no definite signs of pneumonia. There are no definite pulmonary nodules. There are no pleural effusions. The thoracic aorta has a normal caliber without evidence of dissection. There is a small nodule in the left lobe of the thyroid. The pulmonary arteries enhance normally. There are no definite filling defects to indicate pulmonary embolism. There are a few small nonspecific mediastinal lymph nodes. The heart size is mildly enlarged. The adrenal glands appear normal. The regional skeleton appears intact. 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 IMPRESSION: No evidence of pulmonary embolism. Question early emphysema with scattered areas of fibrosis. Mild cardiomegaly. Assessment and Plan Advance Directives: Yes (Full code) VTE prophylaxis?: Chemical Plan of care discussed with patient/family: Yes - Patient Problems (1) Chest pain Current Visit: Yes Status: Acute Qualifiers: Chest pain type: unspecified Qualified Code(s): R07.9 - Chest pain, unspecified Plan to address problem: Chest pain workup Serial troponins Lexiscan the morning (2) Hypertension Current Visit: Yes Status: Chronic Qualifiers: Hypertension type: essential hypertension Qualified Code(s): I10 - Essential (primary) hypertension Plan to address problem: Patient not on any antihypertensives Blood pressure readings are normal If Blood pressure is high consistently will initiate antihypertensives (3) Asthma Current Visit: Yes Status: Inactive Qualifiers: Asthma persistence: unspecified Plan to address problem: Inactive at this time Inhalers or nebulizer treatments as necessary (4) Anemia Current Visit: Yes Status: Chronic Qualifiers: Anemia type: unspecified type Qualified Code(s): D64.9 - Anemia, unspecified Plan to address problem: Anemia workup initiated (5) Malnutrition Current Visit: Yes Status: Chronic Qualifiers: Malnutrition type: protein-calorie malnutrition Protein-calorie malnutrition severity: moderate Qualified Code(s): E44.0 - Moderate protein- calorie malnutrition Plan to address problem: Dietitian consult requested for oral supplements (6) DVT prophylaxis Current Visit: Yes Status: Acute Plan to address problem: Lovenox 40 mg subcutaneous daily GI prophylaxis initiated
[2018-02-22 04:26] LABS: Basophils # (Auto) 0.1 K/mm3 (0.0-0.1); Eosinophils # (Auto) 0.3 K/mm3 (0.0-0.4); Eosinophils % (Auto) 4.8 % (0.0-4.3); Hematocrit 27.4 % (30.3-42.9); Hemoglobin 8.5 gm/dl (10.1-14.3); Lymphocytes # (Auto) 2.4 K/mm3 (1.2-5.4); Lymphocytes % (Auto) 36.9 % (13.4-35.0); Mean Corpuscular HGB Conc 31 % (30-34); Monocytes # (Auto) 0.8 K/mm3 (0.0-0.8); Monocytes % (Auto) 12.5 % (0.0-7.3); Platelet Count 622 K/mm3 (140-440); Red Blood Count 4.44 M/mm3 (3.65-5.03); Red Cell Distribution Width 18.8 % (13.2-15.2)
[2018-02-22 04:42] LABS: Mean Corpuscular Hemoglobin 19 pg (28-32); Mean Corpuscular Volume 62 fl (79-97)
[2018-02-22 04:52] LABS: Alanine Aminotransferase 7 units/L (7-56); Albumin 2.8 g/dL (3.9-5); BUN/Creatinine Ratio 20; Blood Urea Nitrogen 10 mg/dL (7-17); Calcium 8.6 mg/dL (8.4-10.2); Hemolysis Index 34
[2018-02-22] MEDS ORDERED: LEXISCAN IV ONE (08:07)
[2018-02-22] MEDS: LOVENOX SUB-Q SCH (11:42)
[2018-02-22] MEDS: SODIUM CHLORIDE FLUSH SYRINGE 10 ML IV SCH ×2 (11:42→22:14)
--- NOTE | 2018-02-22 12:15 | Progress Note ---
Assessment and Plan Assessment and plan: --Atypical chest pain; probably noncardiac Stress test is negative, continue supportive care --Gastroesophageal reflux disease; managed with Protonix --Elevated D dimers; CTA chest negative for PE Lower extremity venous Doppler negative for DVT --Anemia; we'll monitor H&H and transfuse as needed --Severe malnutrition; nutrition supplements, supportive care --History of bronchial asthma; oxygen nebulizers and IV steroids as needed --DVT prophylaxis; Lovenox Ambulate as tolerated Possible discharge home in 1-2 days if stable History Interval history: Patient seen and examined medical records reviewed No new events reported Patient feels slightly better No new complaints Vital signs noted Hospitalist Physical - Constitutional Vitals: Temp Pulse Resp BP Pulse Ox 99.0 F 100 H 18 119/58 97 02/22/18 08:00 02/22/18 11:51 02/22/18 08:00 02/22/18 09:21 02/22/18 08:00 General appearance: Present: no acute distress, well-nourished - EENT Eyes: Present: PERRL, EOM intact - Neck Neck: Present: supple, normal ROM - Respiratory Respiratory effort: normal Respiratory: negative: rales, rhonchi, wheezing - Cardiovascular Rhythm: regular Heart Sounds: Present: S1 & S2 - Extremities Extremities: no ischemia, No edema - Abdominal General gastrointestinal: soft, non-tender, non-distended, normal bowel sounds - Integumentary Integumentary: Present: clear, warm - Psychiatric Psychiatric: appropriate mood/affect, cooperative - Neurologic Neurologic: CNII-XII intact, moves all extremities Results - Labs CBC & Chem 7: 02/22/18 03:03 02/22/18 03:03 Labs: Laboratory Last Values WBC 6.6 K/mm3 (4.5-11.0) 02/22/18 03:03 RBC 4.44 M/mm3 (3.65-5.03) 02/22/18 03:03 Hgb 8.5 gm/dl (10.1-14.3) L 02/22/18 03:03 Hct 27.4 % (30.3-42.9) L 02/22/18 03:03 MCV 62 fl (79-97) L 02/22/18 03:03 MCH 19 pg (28-32) L 02/22/18 03:03 MCHC 31 % (30-34) 02/22/18 03:03 RDW 18.8 % (13.2-15.2) H 02/22/18 03:03 Plt Count 622 K/mm3 (140-440) H 02/22/18 03:03 Lymph % (Auto) 36.9 % (13.4-35.0) H 02/22/18 03:03 [place] % (Auto) 12.5 % (0.0-7.3) H 02/22/18 03:03 Eos % (Auto) 4.8 % (0.0-4.3) H 02/22/18 03:03 Baso % (Auto) 1.0 % (0.0-1.8) 02/22/18 03:03 Lymph # 2.4 K/mm3 (1.2-5.4) 02/22/18 03:03 [place] # 0.8 K/mm3 (0.0-0.8) 02/22/18 03:03 Eos # 0.3 K/mm3 (0.0-0.4) 02/22/18 03:03 Baso # 0.1 K/mm3 (0.0-0.1) 02/22/18 03:03 Seg Neutrophils % 44.8 % (40.0-70.0) 02/22/18 03:03 Seg Neutrophils # 3.0 K/mm3 (1.8-7.7) 02/22/18 03:03 D-Dimer 4219.64 ng/mlDDU (0-234) H 02/21/18 17:36 Sodium 138 mmol/L (137-145) 02/22/18 03:03 Potassium 4.1 mmol/L (3.6-5.0) 02/22/18 03:03 Chloride 100.9 mmol/L (98-107) 02/22/18 03:03 Carbon Dioxide 25 mmol/L (22-30) 02/22/18 03:03 Anion Gap 16 mmol/L 02/22/18 03:03 BUN 10 mg/dL (7-17) 02/22/18 03:03 Creatinine 0.5 mg/dL (0.7-1.2) L 02/22/18 03:03 Estimated GFR > 60 ml/min 02/22/18 03:03 BUN/Creatinine Ratio 20 % 02/22/18 03:03 Glucose 142 mg/dL (65-100) H 02/22/18 03:03 Hemoglobin A1c 5.8 % (4-6) 02/22/18 01:55 Lactic Acid 0.60 mmol/L (0.7-2.0) L 02/21/18 17:36 Calcium 8.6 mg/dL (8.4-10.2) 02/22/18 03:03 Total Bilirubin < 0.20 mg/dL (0.1-1.2) 02/22/18 03:03 AST 15 units/L (5-40) 02/22/18 03:03 ALT 7 units/L (7-56) 02/22/18 03:03 Alkaline Phosphatase 86 units/L (35-129) 02/22/18 03:03 Troponin T < 0.010 ng/mL (0.00-0.029) 02/21/18 21:00 Total Protein 6.8 g/dL (6.3-8.2) 02/22/18 03:03 Albumin 2.8 g/dL (3.9-5) L 02/22/18 03:03 Albumin/Globulin Ratio 0.7 % 02/22/18 03:03
[2018-02-22] MEDS: PEPCID PO SCH (22:13)
[2018-02-23] MEDS: PEPCID PO SCH (09:27)
[2018-02-23] MEDS: LOVENOX SUB-Q SCH (09:28)
--- NOTE | 2018-02-23 12:43 | Discharge Summary ---
Providers - Providers Date of Admission: 02/22/18 00:00 Date of discharge: 02/23/18 Attending physician: MARC GOINS Primary care physician: M[employer] ADMINISTRATOR Hospitalization Reason for admission: chest pain Condition: Stable Pertinent studies: CTA chest; negative for PE Lower extremity venous Doppler; negative DVT Nuclear stress test; negative for reversible ischemia, normal ejection fraction[ preliminary report by cardiology] Hospital course: Very pleasant 72-year-old female patient with significant past medical history of hypertension and arthritis bronchial asthma did not need any medications was admitted through emergency room with atypical chest pain of one-day duration. Patient was initially evaluated in the hospital symptomatically managed Had elevated D dimers, negative PE and negative DVT, Patient subsequently underwent nuclear stress test; negative for reversible ischemia and normal LV function Today patient feels better no new complaints Vital signs stable physical examination is unremarkable Patient is hemodynamically and clinically stable for discharge Discharge diagnosis; --Atypical chest pain; probably noncardiac, Stress test is negative, --Gastroesophageal reflux disease; managed with Protonix --Elevated D dimers; CTA chest negative for PE, negative DVT --Anemia; stable --Severe malnutrition; nutrition supplements, supportive care --History of bronchial asthma; Disposition: DC- TO HOME OR SELFCARE Time spent for discharge: 31 min Core Measure Documentation - Palliative Care Palliative Care/ Comfort Measures: Not Applicable - Core Measures Any of the following diagnoses?: none Exam - Constitutional Vitals: Temp Pulse Resp BP Pulse Ox 98.8 F 94 H 18 119/57 97 02/23/18 07:25 02/23/18 09:36 02/23/18 07:25 02/23/18 07:25 02/23/18 07:25 General appearance: Present: no acute distress, well-nourished - EENT Eyes: Present: PERRL, EOM intact - Neck Neck: Present: supple, normal ROM - Respiratory Respiratory effort: normal Respiratory: negative: rales, rhonchi, wheezing - Cardiovascular Rhythm: regular Heart Sounds: Present: S1 & S2 - Extremities Extremities: no ischemia, No edema - Abdominal General gastrointestinal: Present: soft, non-tender, non-distended, normal bowel sounds - Integumentary Integumentary: Present: clear, warm - Musculoskeletal Musculoskeletal: strength equal bilaterally - Psychiatric Psychiatric: appropriate mood/affect, cooperative - Neurologic Neurologic: CNII-XII intact, moves all extremities Plan Activity: advance as tolerated, fall precautions Diet: regular Additional Instructions: Advise nutritional supplement; Boost/Ensure 3 times daily Follow up with: PRIMARY CARE,MD [Primary Care Provider] - 3-5 Days Prescriptions: Famotidine [Pepcid] 20 mg PO BID #30 tablet
[2018-02-23] MEDS: SODIUM CHLORIDE FLUSH SYRINGE 10 ML IV SCH (14:35)
[2018-02-23 16:52] VITALS: BP 108/54
--- NOTE | 2018-02-24 11:01 | Treadmill Report ---
THALLIUM STRESS TEST LEFT VENTRICLE: Left ventricular chamber size is within normal limits. Perfusion study demonstrates homogeneous uptake of the tracer in all segments, no significant perfusion defects identified. Gated analysis demonstrates normal left ventricular systolic function, ejection fraction 69%. CONCLUSION: Normal myocardial perfusion study. JOB# [id number] CA/NTS
--- NOTE | 2018-02-25 12:23 | Vascular Lab Report ---
LOWER EXTREMITY VENOUS DUPLEX: REASON FOR EXAM: Elevated d-dimer. COMMENTS ON THE RIGHT: All veins visualized are freely compressible without evidence of internal echogenicity. Flow is spontaneous and phasic throughout. COMMENTS ON THE LEFT: All veins visualized are freely compressible without evidence of internal echogenicity. Flow is spontaneous and phasic throughout. IMPRESSION: No evidence of acute or chronic deep venous thrombosis in either lower extremity.
== END 2018-02-23 20:00 | disposition home or self-care (01) ==
LOC: ED 13:48 → INTOOBSV 02-22 → 4A 02-22
PROVIDERS: ADMIT Internal Medicine; ATTEND Internal Medicine
DX: R07.89 Other chest pain (principal); E43 Unspecified severe protein-calorie malnutrition; I10 Essential (primary) hypertension; D64.9 Anemia, unspecified; J45.909 Unspecified asthma, uncomplicated; Z82.49 Family history of ischemic heart disease and other diseases of the circulatory system; Z79.899 Other long term (current) drug therapy
CPT/HCPCS: 36415; 36569; 71275; 78452; 80048; 80053; 82140; 82962; 83036; 84484; 85025; 85379; 87040; 93005; 93010; 93017; 93970; 96372; 99291; A9502; G0378; J1650; J2785; J7040; Q9967

== ENCOUNTER 2019-04-27 07:27 | Day surgery (SDC) | payer MEDICARE ==
[~2019-04-27 07:27] MED LIST: WATER FOR IRRIG STERILE IR ONE; WATER FOR IRRIG STERILE ONE
[2019-04-27] MEDS ORDERED: XYLOCAINE 1% 20 mL ONE (08:07)
[2019-04-27] MEDS ORDERED: DIPRIVAN 10 MG/ML IV ONE (08:08)
--- NOTE | 2019-04-27 08:56 | Short Stay Summary ---
Short Stay Documentation Date of service: 04/27/19 Narrative H&P: Patient is a 73 yo aaf who presents for evaluation of heme + stool and iron deficiency anemia. no prior egd/colonoscopy. occasional scant hematochezia. rest per clinic H&P. - History Past Medical History: arthritis, hypertension, hyperlipidemia, other (see office note) Past Surgical History: Other (see office note) Social history: no significant social history - Allergies and Medications Current Medications: Allergies No Known Allergies Allergy (Verified 03/17/19 11:35) Home Medications Medication Instructions Recorded Confirmed Last Taken Type Acetaminophen/Codeine [Tylenol 1 tab PO Q6H PRN #20 tab 10/26/17 11/15/17 Unknown Rx /Codeine # 3 tab] Ibuprofen [Motrin 800 MG tab] 800 mg PO Q8HR PRN #20 tablet 11/18/17 Unknown Rx ALBUTEROL Inhaler (OR & NICU) 2 puff IH QID PRN #1 inhalation 02/23/18 Unknown Rx [ProAir HFA Inhaler] Famotidine [Pepcid] 20 mg PO BID #30 tablet 02/23/18 Unknown Rx Active Medications Sodium Chloride (Nacl 0.9% 1000 Ml) 1,000 mls @ 50 mls/hr IV DIRECT [facility] Last Admin: 04/27/19 08:54 Dose: 50 mls/hr Documented by: - Physical exam General appearance: no acute distress Lungs: Clear to auscultation Heart: Regular rate, Normal S1, Normal S2 Gastrointestinal: normal - Brief post op/procedure progress note Date of procedure: 04/27/19 Pre-op diagnosis: iron deficiency anemia Post-op diagnosis: same (EGD: erosive gastritis; colonoscopy: colon polyp, diverticulosis, internal hemorrhoids) Procedure: 1. EGD with biopsy 2. Colonoscopy with snare polypectomy Anesthesia: MAC Findings: EGD: erosive gastropathy Colonoscopy: diverticulosis, colon polyp x 1, internal hemorrhoids Surgeon: HOWIE BERNAL Estimated blood loss: minimal Pathology: list (Jar A - gastric biopsies; Jar B - ascending colon polyp) Specimen disposition: to lab Condition: stable - Disposition Condition at discharge: Good Disposition: DC-[id number] TO HOME OR SELFCARE Short Stay Discharge Plan Follow up with: RYLEE THEODORE MD [Primary Care Provider] - 7 Days
[2019-04-27] MEDS ORDERED: NACL 0.9% 1000 ML 1,000 ML IV SCH (09:00)
--- NOTE | 2019-04-27 09:34 | Operative Report ---
Operative Report Operative Report: Esophagogastroduodenoscopy Procedure Note with Biopsies Date of procedure: 04/27/2019 Endoscopist: Aly Velazquez Pre-op diagnosis: Iron deficiency anemia Post-op diagnosis: Gastritis, Gastric erosions Anesthesia: MAC Complications: No immediate complications Estimated blood loss: minimal Procedure: After consent was obtained, the patient was placed in the left lateral decubitus position. The olympus endoscope was inserted into the patient's mouth under direct vision, and advanced into the 2nd portion of the duodenum without difficulty. The patient tolerated the procedure well. The views of the mucosa were good. Patient's vital signs were monitored continuously throughout the procedure. Findings: The esophagus appeared normal. There were small superficial erosions in the distal gastric body and antrum. There was mild erythematous mucosa in the antrum. Biopsies were obtained to evaluate for H pylori. Otherwise, the stomach appeared normal. The duodenum appeared normal. Impression: 1. Erosive Gastritis. Biopsied to evaluate for H pylori Recommendations: -follow-up pathology -anti-acid medication daily -colonoscopy to follow
--- NOTE | 2019-04-27 09:38 | Operative Report ---
Operative Report Operative Report: Colonoscopy Procedure Note with Snare Polypectomy Date of procedure: 04/27/2019 Endoscopist: Aly Velazquez Pre-op diagnosis: Iron deficiency anemia, Heme + stool Post-op diagnosis: Colon polyp, diverticulosis, internal hemorrhoids Anesthesia: MAC Complications: No immediate complications Estimated blood loss: minimal Procedure: After consent was obtained, the patient was placed in the left lateral decubitus position. The olympus colonoscope was inserted into the patient's rectum under direct vision, and advanced to the cecum without difficulty. The patient tolerated the procedure well. The views of the mucosa were fair. The quality of prep was fair. The patient's vital signs were monitored continuously throughout the procedure. Findings: There was an ~3 mm sessile polyp in the ascending colon. The polyp was removed with cold snare polypectomy and retrieved. Multiple small scattered diverticula in the colon. Internal hemorrhoids were visualized on retro-flexion view. Impression: 1. Colon polyp x 1 removed with snare polypectomy 2. Diverticulosis 3. Internal hemorrhoids Recommendations: -follow-up pathology -high fiber diet daily -repeat colonoscopy in 3-5 years for surveillance -follow-up in GI clinic as scheduled, or in 1 month
--- NOTE | 2019-04-27 09:38 | Anesthesia Day of Surgery ---
Anesthesia Day of Surgery - Day of Surgery Patient Examined: Yes Patient H&P Reviewed: Yes Patient is NPO: Yes Beta Blockers: No Cardiac Clearance: No Pulmonary Clearance: No Hardeep's Test: N/A
--- NOTE | 2019-04-27 09:39 | Anesthesia Consultation ---
Anesthesia Consult and Med Hx - Airway Anesthetic Teeth Evaluation: Poor ROM Head & Neck: Adequate Mental/Hyoid Distance: Adequate Mallampati Class: Class II Intubation Access Assessment: Probably Good - Pulmonary Exam CTA: Yes - Cardiac Exam Cardiac Exam: RRR - Pre-Operative Health Status ASA Pre-Surgery Classification: ASA3 Proposed Anesthetic Plan: General, MAC - Pulmonary Hx Smoking: Yes Hx Asthma: Yes - Cardiovascular System Hx Hypertension: Yes - Hematic Hx Anemia: Yes
[2019-04-27 10:14] VITALS: BP 141/70
--- NOTE | 2019-04-27 10:28 | Post Anesthesia Evaluation ---
- Post Anesthesia Evaluation Patient Participated: Yes Airway Patent: Yes Stable Respiratory Function: Yes Nausea/Vomiting: No Temp > 96.8F: Yes Pain Manageable: Yes Adequeate Hydration: Yes Anesthesia Complications: No Block Receding Appropriately: Not Applicable Patient on Ventilator: No
== END 2019-04-27 07:28 | disposition home or self-care (01) ==
LOC: GIO 07:27
PROVIDERS: ATTEND Internal Medicine Gastroenterology
DX: K29.50 Unspecified chronic gastritis without bleeding (principal); K64.8 Other hemorrhoids; K57.30 Diverticulosis of large intestine without perforation or abscess without bleeding; D50.9 Iron deficiency anemia, unspecified; I10 Essential (primary) hypertension; J45.909 Unspecified asthma, uncomplicated; E78.00 Pure hypercholesterolemia, unspecified; K21.9 Gastro-esophageal reflux disease without esophagitis; M19.90 Unspecified osteoarthritis, unspecified site; F32.9 Major depressive disorder, single episode, unspecified; Z98.890 Other specified postprocedural states; Z79.899 Other long term (current) drug therapy; Z79.82 Long term (current) use of aspirin; Z87.891 Personal history of nicotine dependence; Z90.710 Acquired absence of both cervix and uterus
CPT/HCPCS: 43239; 45385; 88305; 88342; J2704; J7030